=== PATIENT | female | born 1965 | race Two or more races ===

== ENCOUNTER 2024-03-06 10:05 | Outpatient (AMB) | payer OTHER, SELFPAY ==
--- NOTE | 2024-03-06 10:11 | A.OFFVIS_ITS ---
Vital Signs 03/06/24 10:14 Height 5 ft 4 in Weight 153 lb BMI 26.3 BP 134/78 Blood Pressure Location Rt brachial Position Sitting Pulse 74 Pulse Source Pulse Oximeter Pulse Oximetry (%) 96 Oxygen Delivery Method Room Air Intake Visit Reasons: ENP-Migraine -Conf Intake Note: Patient presents for migraines.patient gets 3 migraines week affecting vision sensitive to light and sound. Allergies amoxicillin Allergy (Unknown, Verified 03/06/24 10:15) Unknown HPI Comments Details: Right-handed 58-yr-old female presents for new pt evaluation of headache disorder for transfer of care from her previous neurologist in [facility]. Pt reports she has had migraine since age 13 without known precipitating causes. She has varying daily migraine headache. She was doing better when on Aimovig, but her last injection was several months ago. She has been having worsening headaches. She also notes newer onset diplopia which she describes as left eye pain, left eye seeing blurry vision x's 30 seconds w/wo headache, the objects appear to move into her and occasional seeing double x's past 1-2 yrs-- had normal eye exam. PMH and ROS are notable for:? General: fatigue Neuro: vertigo. Musculoskeletal disorders or injury: fibromyalgia, joint pain, neck/back pain. Hand/leg cramps at rest and action. Mood d/o: Anxiety, Depression, Respiratory d/o: Asthma w/ cold s/s CV disease: HLD History of syncope: 7-8 yrs ago- d/t fibromyalgia flare GI d/o: [employer]: Post-menopausal Family history of migraine or other headache disorder: sister and dtr Pertinent denials include: History of concussion/head injury, Clotting d/o, Endocrine d/o, metabolic d/o, History of seizure, Constipation, Lifestyle considerations: Sleep routine: Usual bedtime: 9pm and wake-up time: 6am Sleep difficulties: Endorses: difficulty initiating sleep, fibromyalgia causes body pains which make it difficult to sleep, Snoring at x's, Fatigue, Restless sleep, Leg Cramps, Bruxism. She thinks she might have RLS- not prone to staying still for long. Caffeine use: 3 cups of coffee/tea per day- latest by 8pm. Substance use: Tobacco- e-cig. Trying to quit. Exercise:?walks- limited by body pains Employment:? disabled Headache questionnaire:? Previous work-up: Last head imaging 2018- per pt WNL. This was prior to onset of left eye s/s. Typical headache characteristics: Prodrome symptoms: None Aura: Sees stars Pain intensity: severe Location, quality, characteristics: Varies some depending on the day states 6 different types of headaches, but today is able to describe 3 headaches. 1- Aura of seeing stars f/b bifrontal pressure headache- unsure of associated symptoms. 2- Starts in occipital region, and can become holocranial throbbing, aching pain a/w photophobia, phonophobia, nausea, vomiting, dizziness, watery eyes. This lasts 1-3 days. 3- left sided eye, face and whole left side. throbbing, aching pain a/w photophobia, phonophobia, nausea, dizziness, watery eyes. This lasts 1-3 days. Headaches also associated symptoms: photophobia, phonophobia, osmophobia, allodynia, nausea, vomiting, spinning dizziness, not right in space dizziness, lightheadedness, fatigue, cognitive difficulties, activity intolerance, watery eye, some days also feels tingling in her hands and legs. Standing up/bending over exacerbates Postdrome: lingers Triggers: poor fluid intake, hunger, sounds, poor sleep, stress, weather changes, altitude changes Time of day: No specific time of day Duration and Frequency: Daily left-sided or occipital headache, and 3 severe headache days per week. How does headache impact your life? Makes it difficult to do her daily activities. Current acute medication use/interventions: Rizatriptan 10mg- does help. May add Ibuprofen 400mg or Tylenol at times. Tramadol prn for fibromyalgia- not taking routinely. Current preventative medication use: None. On Cymbalta and Gabapentin- for fibromyalgia. Non-pharmacological interventions: Rest, Heat to her head, Ice to the left eye. [facility] Medical History (Updated 03/06/24 @ 12:27 by ANGELA Cortés) Mild asthma Vitamin D deficiency Migraine Fibromyalgia Surgical History (Updated 02/19/24 @ 08:38 by RODERICK Ravi) Hx of colonoscopy Hx of cholecystectomy Hx of appendectomy Family History Mother Arthritis Father Heart disease Social History Alcohol intake: never Patient Tobacco Use Status: Current everyday Tobacco user Physical Exam Vital Signs: Last Vital Signs Pulse 74 03/06/24 10:14 BP 134/78 03/06/24 10:14 Pulse Ox 96 03/06/24 10:14 Oxygen Delivery Method Room Air 03/06/24 10:14 BMI result Body Mass Index 26.3 Const Orientation/consciousness: patient oriented x3 Resp Effort & Inspection: normal respiratory effort and able to speak in complete sentences Neuro Other: EOM intact- does elicit mild dizziness. Mallampati stage IV Signs of lower teeth wearing Left TMJ slippage w/ open/close. Left TMJ region tenderness to palpation. Bilateral mild posterior cervical tightness. Cervical ROM: full Spurling: elicits discomfort moving down into LUE General: patient oriented x3 Cranial nerves: Yes CN's II-XII intact bilaterally and Yes Nystagmus not present Cognition (Neuro): normal cognition Gait exam (Neuro): Normal gait present Motor exam (neuro): 5/5 motor strength present throughout Deep tendon reflexes (DTR's): Right triceps reflex intensity grade: 2+, Left triceps reflex intensity grade: 2+, Rt Biceps (C5, C6): 2+, Left biceps reflex intensity grade: 2+, Right brachioradialis reflex intensity grade: 2+, Left brachioradialis reflex intensity grade: 2+, Right patellar reflex intensity grade: 2+ and Left patellar reflex intensity grade: 2+ Coordination: [id number] test normal, tandem gait normal and Romberg test negative Pupils: Normal pupillary reactivity/response: bilateral Psych Appearance: grossly normal Mental Status: mental status grossly normal Speech and movement: Normal speech and movement present Affect: normal affect Attitude: cooperative Thought process: Normal thought process present Assessment & Plan Assessment & Plan (1) Worsening headaches: Code(s): R51.9 - Headache, unspecified Category: Medical (2) Visual aura: Code(s): H53.9 - Unspecified visual disturbance Category: Medical (3) Left eye pain: Code(s): H57.12 - Ocular pain, left eye Category: Medical (4) Chronic migraine without aura: Code(s): G43.709 - Chronic migraine without aura, not intractable, without status migrainosus Category: Medical (5) Migraine with aura: Code(s): G43.109 - Migraine with aura, not intractable, without status migrainosus Category: Medical (6) Sleep difficulties: Code(s): G47.9 - Sleep disorder, unspecified Category: Medical (7) Snoring: Code(s): R06.83 - Snoring Category: Medical (8) Fatigue: Code(s): R53.83 - Other fatigue Category: Medical Plan We have advised you to have the following exams: Brain MRI w/o to assess for secondary etiologies of newer onset left visual aura and eye pain and worsening headaches in pt > age 50. HST to assess for sleep apnea. For overall headache management: It is important to practice good self-care, including but not limited to eating a healthy diet, drinking enough fluids (typically 64 oz per day), maintaining a good sleep routine, and engaging in regular physical activity (typically 30-45 minutes of moderate physical activity 5 days per week). To help us better understand your headache: Track headaches, especially after treatment plan changes. Migraine [employer] is one of many headache tracking apps you may use.. For acute headache treatment: It is important to take as needed acute medications at the first sign of headache, however you want to avoid taking most as needed headache too often as this can lead to medication overuse/adaptation headaches. Continue Rizatriptan (Maxalt) 10mg prn, MR in 2 hrs, Max 2 tabs per day. Ibuprofen 400-600mg every 4-6 hours as needed. Previous acute migraine medication trials: No other prescription tx's. Acute migraine medication contraindications: None at this time. For headache prevention medication: Preventative medications should be taken routinely as prescribed for best effect, it may take several weeks to see full effect. Start Riboflavin 400mg qam Start Magnesium 400mg qhs Start Aimovig 140mg/ml autoinjector, 1ml (140mg) subcutaneous injection once a month. Potential adverse effects of Aimovig include but are not limited to injection site reactions, cramps, constipation, increase in blood pressure. Previous migraine prevention medication trials: Amitriptyline- ineffective and caused grogginess after several months of use. Bi-frontal Botox injections x's 3 cycles- not very effective. Pt believes hse has tried other tx's- does not recall details- will forward us her previous neurology notes. Migraine prevention medication contraindications: None at this time. Pt seen in c/w Dr Dee Dee Benito. Follow-up in 4-6 months or sooner prn. Orders: Orders RT home sleep study Today G47.9 - Sleep disorder, unspecified, R06.83 - Snoring, R53.83 - Other fatigue MR head/brain wo/w con Today H53.9 - Unspecified visual disturbance, H57.12 - Ocular pain, left eye, R51.9 - Headache, unspecified Medications: New rizatriptan take 1 tab at onset of headache; if no relief may repeat 1 tab after at least 2 hrs; max = 2tabs/24 hr orally PRN; 30 days 14 tabs 6RF migraine headache riboflavin (vitamin B2) 400 mg PO DAILY 30 days 30 tabs 6RF magnesium oxide may hold for loose stools 400 mg PO BEDTIME 30 days 30 tabs 6RF erenumab-aooe (Aimovig Autoinjector) 140 mg subcut ONCE 30 days 1 mL 6RF G43.709 - Chronic migraine without aura, not intractable, without status migrainosus Coding Level of Care Code New Pt Level 4 (12042) Diagnoses Worsening headaches R51.9 Visual aura H53.9 Left eye pain H57.12 Chronic migraine without aura G43.709 Migraine with aura G43.109 Sleep difficulties G47.9 Snoring R06.83 Fatigue R53.83
[2024-03-06 10:14] VITALS: BP 134/78; PULSE 74; O2SAT 96; BMI 26.3
== END 2024-03-06 11:20 | disposition home or self-care (01) ==
PROVIDERS: PCP Student in an Organized Health Care Education/Training Program; Visit Provider Nurse Practitioner Family
DX: R51.9 Headache, unspecified (principal); H53.9 Unspecified visual disturbance; H57.12 Ocular pain, left eye; G43.709 Chronic migraine without aura, not intractable, without status migrainosus; G43.109 Migraine with aura, not intractable, without status migrainosus; G47.9 Sleep disorder, unspecified; R06.83 Snoring; R53.83 Other fatigue
CPT/HCPCS: 99204

== ENCOUNTER → 2024-03-06 10:05 | Outpatient (BNVA) | payer OTHER, SELFPAY | PROVIDERS: PCP Student in an Organized Health Care Education/Training Program; Visit Provider Nurse Practitioner Family ==

== ENCOUNTER → 2024-06-29 17:17 | Outpatient (BNV) | payer OTHER, SELFPAY | PROVIDERS: Visit Provider Radiology Diagnostic Radiology | DX: H53.9 Unspecified visual disturbance (principal) | CPT/HCPCS: 70553 ==

== ENCOUNTER 2024-06-29 17:19 | Outpatient (REF) | payer OTHER, SELFPAY ==
--- NOTE | ~2024-06-29 | MR_ITS ---
EXAMINATION: MR BRAIN WITHOUT AND WITH CONTRAST CLINICAL INFORMATION: Unspecified visual disturbance. COMPARISON: None available. TECHNIQUE: Multiplanar, multisequence MRI of the brain was obtained before and after the intravenous administration of 7 mL gadolinium based without reported immediate complications.. FINDINGS: Submitted for interpretation on July 08, 2024. No restricted diffusion. No acute intracranial hemorrhage, mass effect, midline shift, hydrocephalus or herniation. Grade 1 matter differentiation is normal. Posterior cranial fossa contents demonstrated no gross abnormality. Sellar/suprasellar region demonstrated no gross masses or signal abnormality. Craniocervical junction is intact and normal. Midline structures are normal. Flow-void signal within the main cerebral vessels is normal. There is a 5 mm extra-axial CSF equivalent signal and the right middle cranial fossa without mass effect. No abnormal enhancement within the intra-axial or the extra-axial compartment of the cranium. Main cerebral venous sinuses demonstrate no gross signal abnormality. No gross masses within the intraconal or the extraconal compartments of the orbits. Focal 5 mm intrinsic hyperintense T1 signal in the right parietal diploic likely lipoma. MR/MR head/brain wo/w con IMPRESSION: No acute or structural brain abnormality. No abnormal enhancing lesion. Electronically signed by: Sid Crespo MD 07/08/2024 02:41 PM EST
[2024-06-29] MEDS: gadobutroL 7.5 ML VIAL IVPUSH (18:07)
== END 2024-06-29 17:20 | disposition home or self-care (01) ==
LOC: HO.MRI 17:19
PROVIDERS: Visit Provider Nurse Practitioner Family
DX: H53.9 Unspecified visual disturbance (principal); R51.9 Headache, unspecified; H57.12 Ocular pain, left eye
CPT/HCPCS: 70553; A9585